=== PATIENT | male | born 1990 | race Caucasian/White ===

== ENCOUNTER 2017-05-15 23:24 | Emergency (ER) | payer BC, OTHER ==
[~2017-05-15 23:24] MED LIST: Z.0.NO CURRENT MEDS
[2017-05-15 23:27] VITALS: BP 161/83; PULSE 100; RESP 20; TEMP 98.2; O2SAT 100
[2017-05-15 23:47] VITALS: BP 161/83; PULSE 126; RESP 18; TEMP 98.2; O2SAT 100
[2017-05-16 00:06] VITALS: BP 138/82; PULSE 96; RESP 18; O2SAT 98
--- NOTE | 2017-05-16 00:07 | RADRPT ---
EXAM DATE/TIME: 05/15/2017 23:52 [place] COMPARISON: No previous studies available for comparison. INDICATIONS : Left ankle pain and swelling after falling into a pothole. MEDICAL HISTORY : None. SURGICAL HISTORY : None. ENCOUNTER: Initial ACUITY: 1 day PAIN SCORE: 9/10 LOCATION: Left lateral ankle FINDINGS: Three view exam was performed of the left ankle. The bony structures are in normal alignment. No ev idence of acute fracture or malalignment. There is soft tissue swelling over the anterior and lateral malleolus. The ankle mortise is intact. No radiopaque foreign bodies are seen. Bony mineralization is normal. CONCLUSION: Soft tissue swelling over the anterior and lateral malleolus with no acute fracture o r malalignment. Wilbert Branham MD on May 16, 2017 at 0:05 Board Certified Radiologist. This report was verified electronically.
[2017-05-16] MEDS ORDERED: IBUP800T23 PO (00:21)
--- NOTE | 2017-05-16 00:21 | PD ---
HPI Chief Complaint: Injury Time Seen by Provider: 23:50 Travel History International Travel<30 days: No Contact w/Intl Traveler<30days: No Traveled to known affect area: No History of Present Illness HPI 27-year-old male presents to the emergency department for evaluation of left ankle injury with marked swelling. Patient reports approximately 40 minutes prior to arrival to the emergency department he went out jogging and stepped in a pothole twisting his ankle. Patient noted immediate pain and swelling and states that he became concerned that he may have fractured or dislocated his ankle. Patient attempted weightbearing 4 short while but was unable to sustain weight bearing to the foot and ankle and presents now for further evaluation. Patient denies previous injury to the left ankle. Patient denies other injury. Patient did not fall or hit his head or not have loss of consciousness did not injure his neck or back did not injure his chest or abdomen did not injure his pelvis or other extremity. Patient rates his pain initially 10 over 10 in intensity presently 6/10 in intensity. Patient denies any chronic medical conditions. Patient's had previous tonsillectomy and remote right elbow surgery. 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) Cancer: No Cardiovascular Problems: No Diabetes: No Diminished Hearing: No Glaucoma: No Genitourinary: Yes (HERPES) Hepatitis: No Hiatal Hernia: No Hypertension: No Musculoskeletal: No Neurologic: No Reproductive: No Respiratory: No Integumentary: Yes (CONTACT DERMATITIS WITH TO MUCH DETERGENT) Immunizations Current: Yes Thyroid Disease: No Past Surgical History Tonsillectomy: Yes (AGE 18) Other Surgery: Yes (SURGERY ON ELBOW) Social History Alcohol Use: No (NONE) Tobacco Use: No Allergies-Medications (Allergen,Severity, Reaction): Coded Allergies: No Known Allergies (Verified , 05/15/17) Reported Meds & Prescriptions Reported Meds & Active Scripts Active Ibuprofen 800 Mg Tab 800 Mg PO Q8H PRN Reported No Current Meds (Miscellaneous Medication) Misc Review of Systems Except as stated in HPI: all other systems reviewed are Neg Physical Exam Narrative GENERAL: Well-developed well-nourished male in no acute distress no respiratory distress SKIN: Warm and dry. HEAD: Normocephalic. EYES: No scleral icterus. No injection or drainage. NECK: Supple, trachea midline. No JVD or lymphadenopathy. CARDIOVASCULAR: Regular rate and rhythm without murmurs, gallops, or rubs. RESPIRATORY: Breath sounds equal bilaterally. No accessory muscle use. GASTROINTESTINAL: Abdomen soft, non-tender, nondistended. MUSCULOSKELETAL: No cyanosis, or edema. Attention left ankle marked soft tissue swelling overlying the left lateral malleolus. Dorsalis pedis pulses 2+ to palpation. Posterior tibialis pulse 2+ to palpation. Capillary refill brisk and less than 2 seconds per digit. Sensation intact. Patient decreased range of motion of left ankle secondary to soft tissue swelling. No ecchymosis or abrasion. No puncture wound or laceration. BACK: Nontender without obvious deformity. No CVA tenderness. Data Data Last Documented VS Vital Signs Date Time Temp Pulse Resp B/P Pulse Ox O2 Delivery O2 Flow Rate FiO2 05/16/17 00:06 96 18 138/82 98 Room Air 05/15/17 23:47 98.2 Orders Ankle, Complete ([id number]) (05/15/17 ) Ice/Cold Pack (05/15/17 23:42) ^ Saline Lock (05/15/17 23:50) NPO (05/15/17 23:50) Ibuprofen (Motrin) (05/16/17 00:30) Crutches (05/16/17 00:21) Splint Or Brace Apply/Monitor (05/16/17 00:21) MDM Medical Decision Making Medical Screen Exam Complete: Yes Emergency Medical Condition: Yes Medical Record Reviewed: Yes Interpretation(s) Left ankle xr: FINDINGS: Three view exam was performed of the left ankle. The bony structures are in normal alignment. No evidence of acute fracture or malalignment. There is soft tissue swelling over the anterior and lateral malleolus. The ankle mortise is intact. No radiopaque foreign bodies are seen. Bony mineralization is normal. CONCLUSION: Soft tissue swelling over the anterior and lateral malleolus with no acute fracture or malalignment. Wilbert Branham MD on May 16, 2017 at 0:05 Board Certified Radiologist. This report was verified electronically. Differential Diagnosis Strain sprain subluxation dislocation fracture Narrative Course Ice pack applied an x-ray of the left ankle ordered Imaging reveals no obvious fracture subluxation or dislocation or joint space widening or abnormality; patient was severe sprain we'll place him posterior splint and put patient on crutches to make him nonweightbearing and referred to orthopedist for follow-up. Patient will be given a work excuse and a school excuse for nonweightbearing activities. Patient provided a prescription for ibuprofen 800 mg weight-based as often as every 8 hours as needed for pain associated with inflammation encouraged to elevate the left lower extremity and to return to the emergency department for any concerns or change in condition Diagnosis Primary Impression: Left ankle sprain Qualified Code: S93.402A - Sprain of left ankle, unspecified ligament, initial encounter Referrals: Orthopedist call for appointment Systems Librarian Orthopedist: Dr Corona Patient Instructions: General Instructions Departure Forms: School Release, Please excuse from school until (free text option): no weight bearing x 5 days Tests/Procedures, Work Release Special Instructions: no work x 5 days Additional Instructions: Elevate left lower extremity intermittently Apply ice pack intermittently for next 12-24 hours Wear splint Use crutches to assist ambulation Follow-up with orthopedist call office to schedule follow-up appointment Return to the emergency department for any concerns or change in condition No work/weightbearing 5 days Avoid weightbearing 5 days with school activities Use/take ibuprofen as prescribed as needed for pain associated with inflammation Med/Other Pt SpecificInfo: Prescription(s) given Scripts Ibuprofen 800 Mg Mor993 Mg PO Q8H PRN (PAIN GREATER THAN 5) #12 TAB Ref 0 Prov:Karyn Forrester MD 05/16/17 Disposition: 01 DISCHARGE HOME Condition: Stable Karyn Forrester MD May 16, 2017 00:21
[2017-05-16] MEDS ORDERED: IBUPROFEN 800 MG TAB PO ONE (00:30)
== END 2017-05-16 00:50 | disposition home or self-care (01) ==
LOC: PHED 23:24
DX: S93.402A Sprain of unspecified ligament of left ankle, initial encounter (principal); X50.1XXA Overexertion from prolonged static or awkward postures, initial encounter; Y93.02 Activity, running; Y92.410 Unspecified street and highway as the place of occurrence of the external cause
CPT/HCPCS: 29515; 73610; 99283; E0113